=== PATIENT | female | born 1970 | race Caucasian/White ===

== ENCOUNTER 2018-09-20 07:38 | Outpatient (CLI) | payer OTHER | END 2018-09-20 12:00 | disposition HB | LOC: LAB 07:38 | DX: D47.3 Essential (hemorrhagic) thrombocythemia (principal); D51.3 Other dietary vitamin B12 deficiency anemia; F33.8 Other recurrent depressive disorders; M79.7 Fibromyalgia; L23.4 Allergic contact dermatitis due to dyes; D50.8 Other iron deficiency anemias; D51.1 Vitamin B12 deficiency anemia due to selective vitamin B12 malabsorption with proteinuria; D51.0 Vitamin B12 deficiency anemia due to intrinsic factor deficiency; D55.0 Anemia due to glucose-6-phosphate dehydrogenase [G6PD] deficiency; E06.3 Autoimmune thyroiditis; E03.8 Other specified hypothyroidism; I10 Essential (primary) hypertension ==

== ENCOUNTER → 2018-09-26 | Outpatient (CLI) | payer OTHER | END | disposition home or self-care (01) | LOC: MAMO-SONO 07:43 | DX: N60.11 Diffuse cystic mastopathy of right breast (principal); N60.12 Diffuse cystic mastopathy of left breast; Z12.31 Encounter for screening mammogram for malignant neoplasm of breast ==

== ENCOUNTER 2018-10-04 14:58 | Emergency (ER) | payer OTHER ==
[~2018-10-04] VITALS: Ht 160 cm; Wt 77.1 kg
[2018-10-04] MEDS ORDERED: LISINOPRIL10 MG (15:28)
== END 2018-10-04 16:37 | disposition home or self-care (01) ==
LOC: ER 14:58
DX: S91.341A Puncture wound with foreign body, right foot, initial encounter (principal); W26.8XXA Contact with other sharp object(s), not elsewhere classified, initial encounter; Y93.89 Activity, other specified; Y92.89 Other specified places as the place of occurrence of the external cause; Y99.8 Other external cause status

== ENCOUNTER → 2018-12-20 11:46 | Outpatient (CLI) | payer OTHER ==
[~2018-12-20 11:46] MED LIST: LISINOPRIL10 MG
== END | disposition home or self-care (01) ==
LOC: LAB 11:46
DX: A53.9 Syphilis, unspecified (principal)

== ENCOUNTER 2021-07-08 07:41 | Outpatient (CLI) | payer OTHER | END 2021-07-08 07:53 | disposition home or self-care (01) | LOC: MAMO-SONO 07:41 | DX: N64.59 Other signs and symptoms in breast (principal); Z12.31 Encounter for screening mammogram for malignant neoplasm of breast ==